=== PATIENT | female | born 1960 | race Caucasian/White ===

== ENCOUNTER 2018-04-21 05:26 | Day surgery (SDC) | payer BC ==
[2018-04-21] VITALS (9 sets, daily range): BP systolic 79–145; BP diastolic 57–72; PULSE 59–91; TEMP 98.1–98.7
[~2018-04-21] VITALS: Ht 167.6 cm; Wt 127.9 kg
[2018-04-21] MEDS ORDERED: GLUCOPHAGE500 MG/TAB PO (06:04)
[2018-04-21] MEDS ORDERED: SYNTHROID0.075 MG/T PO (06:05)
[2018-04-21] MEDS ORDERED: PRINZIDE 12.5 M1 TAB PO (06:05)
[2018-04-21] MEDS ORDERED: FLEXERIL 1010 MG/TAB PO (06:06)
[2018-04-21] MEDS ORDERED: MOBIC15 MG PO (06:06)
[2018-04-21] MEDS ORDERED: CENTRUM SILVER1 CTB PO (06:07)
[2018-04-21] MEDS ORDERED: MOTRIN 800800 MG/TAB PO (09:42)
[2018-04-21] MEDS ORDERED: PERCOCET 325 MG1 TA2 PO (09:42)
== END 2018-04-21 18:05 | disposition home or self-care (01) ==
LOC: SDCO 05:26 → SURG 10:50 → SDCO 18:05
DX: D25.1 Intramural leiomyoma of uterus (principal); N95.0 Postmenopausal bleeding; N84.0 Polyp of corpus uteri; N80.0 Endometriosis of uterus; N73.6 Female pelvic peritoneal adhesions (postinfective); E11.9 Type 2 diabetes mellitus without complications; Z79.84 Long term (current) use of oral hypoglycemic drugs; I10 Essential (primary) hypertension; Z78.0 Asymptomatic menopausal state; E66.01 Morbid (severe) obesity due to excess calories; E03.9 Hypothyroidism, unspecified
CPT/HCPCS: OP; A4314; A9284; J0690; J1815; J2370; J2550; J2704; J3010; J7120